=== PATIENT | female | born 1970 | race Caucasian/White ===

== ENCOUNTER 2017-12-13 09:20 | Outpatient (CLI) | payer BC | END 2017-12-13 09:21 | disposition home or self-care (01) | LOC: BICMAMMO 09:20 | PROVIDERS: ATTEND Family Medicine | DX: Z12.31 Encounter for screening mammogram for malignant neoplasm of breast (principal) | CPT/HCPCS: 77063; 77067 ==

== ENCOUNTER 2018-05-16 11:01 | Outpatient (CLI) | payer BC ==
--- NOTE | 2018-05-16 13:46 | ULT ---
PELVIC ULTRASOUND: Date: 05/16/18 HISTORY: Pelvic pain. FINDINGS: Real-time imaging of the pelvis was obtained transabdominally, as well as with an endovaginal probe. This shows a uterus which measures 4.2 x 5.6 x 7.4 cm. The endometrium is thickened at approximately 1.0 cm. There is a small follicle involving the left ovary. Right ovary is normal in appearance. DOPPLER EVALUATION WITH SPECTRAL ANALYSIS: Normal flow is shown to the left ovary. It is difficult to show flow to the right ovary. I think this is just related to its posterior position. Trace free fluid is noted. IMPRESSION: Essentially unremarkable pelvic ultrasound, as discussed above. POS: [facility]
== END 2018-05-16 11:02 | disposition home or self-care (01) ==
LOC: SCSULT 11:01
PROVIDERS: ATTEND Family Medicine
DX: R10.2 Pelvic and perineal pain (principal); R97.1 Elevated cancer antigen 125 [CA 125]
CPT/HCPCS: 76856

== ENCOUNTER 2018-09-20 09:18 | Outpatient (CLI) | payer BC ==
--- NOTE | 2018-09-20 10:30 | MRI ---
MRI LUMBAR SPINE: 09/20/2018 PROVIDED CLINICAL HISTORY: Chronic back pain. COMPARISON: 11/13/2013 FINDINGS: Five lumbar vertebral bodies are assumed. Lumbar alignment appears normal. Vertebral body heights a ppear preserved. No focal concerning regional marrow signal abnormality is evident. The conus medul bakari is normal in signal and terminates at an appropriate level. The visualized extraspinal soft ti ssues appear unremarkable. L1-L2: There is no significant central canal or foraminal narrowing apparent. L2-L3: There is no significant central canal or neural foraminal narrowing apparent. L3-L4: There is mild bilateral facet arthritis. There is no significant central canal or foraminal narrowing apparent. L4-L5: There is bilateral facet arthritis. There is no significant central canal or foraminal narro wing apparent. L5-S1: There is a broad-based disk bulge with an annular tear involving the dorsal margin, appearing similar to the prior study. There is bilateral facet arthritis. There is mild right foraminal narr owing. No significant central canal stenosis or left foraminal narrowing apparent. IMPRESSION: Lower lumbar degenerative changes without significant central canal or foraminal narrowing apparent, appearing similar to the prior study. POS: [facility]
== END 2018-09-20 09:19 | disposition home or self-care (01) ==
LOC: SCSMRI 09:18
PROVIDERS: ATTEND Family Medicine
DX: M54.41 Lumbago with sciatica, right side (principal); M54.42 Lumbago with sciatica, left side; M53.3 Sacrococcygeal disorders, not elsewhere classified; M47.816 Spondylosis without myelopathy or radiculopathy, lumbar region
CPT/HCPCS: 72148

== ENCOUNTER 2019-02-07 10:31 | Outpatient (CLI) | payer BC ==
--- NOTE | 2019-02-07 10:57 | MMO ---
Bilateral MAMMO Bilat Diag [facility]. CLINICAL HISTORY: Patient is 48 years old and is seen for diagnostic exam. The patient has no family history of breast cancer. The patient has no personal history of cancer. VIEWS: The views performed were: bilateral craniocaudal with tomosynthesis; bilateral mediolateral oblique with tomosynthesis; bilateral mediolateral with tomosynthesis; and bilateral exaggerated craniocaudal. FILMS COMPARED: The present examination has been compared to prior imaging studies performed at [facility] on 03/04/2015, 03/17/2015, 12/10/2016 and 12/13/2017. MAMMOGRAM FINDINGS: The breasts are heterogeneously dense, which could obscure a lesion on mammography. There are no suspicious masses, suspicious calcifications, or new areas of architectural distortion. IMPRESSION: THERE IS NO MAMMOGRAPHIC EVIDENCE OF MALIGNANCY. A ROUTINE FOLLOW-UP MAMMOGRAM IN 1 YEAR IS RECOMMENDED. THE RESULTS OF THIS EXAM WERE SENT TO THE PATIENT. ACR BI-RADS Category 1 - Negative MAMMOGRAPHY NOTE: 1. A negative mammogram report should not delay a biopsy if a dominant of clinically suspicious mass is present. 2. Approximately 10% to 15% of breast cancers are not detected by mammography. 3. Adenosis and dense breasts may obscure an underlying neoplasm.
== END 2019-02-07 10:32 | disposition home or self-care (01) ==
LOC: BICMAMMO 10:31
PROVIDERS: ATTEND Family Medicine
DX: Z00.00 Encounter for general adult medical examination without abnormal findings (principal)
CPT/HCPCS: 77066; G0279

== ENCOUNTER 2020-02-27 14:48 | Outpatient (CLI) | payer BC ==
--- NOTE | 2020-02-27 15:34 | MMO ---
Bilateral MAMMO Bilat Screen [facility]. CLINICAL HISTORY: Patient is 49 years old and is seen for screening. The patient has no family history of breast cancer. The patient has no personal history of cancer. VIEWS: The views performed were: bilateral craniocaudal with tomosynthesis and bilateral mediolateral oblique with tomosynthesis. FILMS COMPARED: The present examination has been compared to prior imaging studies performed at [facility] on 03/17/2015, 12/10/2016, 12/13/2017 and 02/07/2019. This study has been interpreted with the assistance of computer-aided detection. MAMMOGRAM FINDINGS: The breasts are heterogeneously dense, which could obscure a lesion on mammography. There are no suspicious masses, suspicious calcifications, or new areas of architectural distortion. IMPRESSION: THERE IS NO MAMMOGRAPHIC EVIDENCE OF MALIGNANCY. A ROUTINE FOLLOW-UP MAMMOGRAM IN 1 YEAR IS RECOMMENDED. THE RESULTS OF THIS EXAM WERE SENT TO THE PATIENT. ACR BI-RADS Category 1 - Negative MAMMOGRAPHY NOTE: 1. A negative mammogram report should not delay a biopsy if a dominant of clinically suspicious mass is present. 2. Approximately 10% to 15% of breast cancers are not detected by mammography. 3. Adenosis and dense breasts may obscure an underlying neoplasm. Reported by: JAVED BARRY MD Electonically Signed: [id number]
--- NOTE | 2020-02-27 15:51 | ULT ---
SOFT TISSUE ULTRASOUND: 02/27/20 INDICATIONS: Palpable lump left lower extremity. FINDINGS: Soft tissue ultrasound is directed to the area of palpable concern involving the left lateral thigh r egion. No sonographic abnormality identified. IMPRESSION: No sonographic abnormality is seen at the region of palpable concern. POS: [facility]
== END 2020-02-27 14:49 | disposition home or self-care (01) ==
LOC: BICMAMMO 14:48
PROVIDERS: ATTEND Family Medicine
DX: Z12.31 Encounter for screening mammogram for malignant neoplasm of breast (principal); R22.42 Localized swelling, mass and lump, left lower limb
CPT/HCPCS: 76999; 77063; 77067

== ENCOUNTER 2021-04-01 10:28 | Outpatient (CLI) | payer BC | END 2021-04-01 10:29 | disposition home or self-care (01) | LOC: BICMAMMO 10:28 | PROVIDERS: ATTEND Family Medicine | DX: Z12.31 Encounter for screening mammogram for malignant neoplasm of breast (principal) | CPT/HCPCS: 77063; 77067 ==